=== PATIENT | male | born 1980 | race Caucasian/White ===

== ENCOUNTER → 2024-05-22 11:02 | Outpatient (BNVA) | payer OTHER, SELFPAY | PROVIDERS: PCP Physician Assistant; Visit Provider Physician Assistant | DX: R07.89 Other chest pain (principal); H69.92 Unspecified Eustachian tube disorder, left ear | CPT/HCPCS: 93005 ==

== ENCOUNTER 2024-07-15 08:24 | Outpatient (REF) | payer OTHER, SELFPAY ==
--- NOTE | ~2024-07-15 | XR_ITS ---
EXAMINATION: XR CHEST 2 VIEWS HISTORY: R07.89 - Other chest pain COMPARISON: There are no prior studies for comparison. FINDINGS: PA and lateral views of the chest are submitted. There is mild increased patchy opacity seen posteriorly on the lateral view overlapping the lower spine, suspicious for early pneumonia. The lungs are otherwise clear. There is no pleural effusion, pneumothorax, or pulmonary vascular congestion. The heart is normal in size. The bones are intact. XR/XR chest 2V IMPRESSION: Patchy opacity posteriorly on the lateral view, suspicious for early lower lobe pneumonia. Follow-up is recommended to document resolution. Electronically signed by: Alireza Diana MD 07/15/2024 09:16 AM EDT
[2024-07-15 10:00] LABS: MANUAL DIFF FLAG NO
[2024-07-15 10:12] LABS: Basophils Absolute Auto 0.1 X10*3/uL (0.0-0.2); Basophils Percent Auto 0.7 % (0-2); Eosinophils Absolute Auto 0.1 X10*3/uL (0.0-0.4); Eosinophils Percent Auto 1.3 % (0-4); Hematocrit 48.3 % (42.0-52.0); Hemoglobin 15.6 g/dl (14.0-18.0); Imm Gran Abs Auto 0.02 X10*3/uL (0.00-0.03); Imm Gran Pct Auto 0.3 % (0.0-0.4); Lymphocytes Absolute Auto 1.9 X10*3/uL (1.2-4.9); Mean Corpuscular HGB Conc 32.3 g/dl (31.0-36.0); Mean Corpuscular Hemoglobin 29.3 pg (27.0-33.0); Mean Corpuscular Volume 90.6 fL (80.0-98.0); Mean Platelet Volume 11.3 fL (9.4-12.4); Monocytes Absolute Auto 0.5 X10*3/uL (0.1-1.2); Monocytes Percent Auto 7.1 % (2-11); Neutrophils Absolute Auto 4.4 x10*3/uL (2.0-8.3); Neutrophils Percent Auto 63.6 % (45-73); Platelet Count 268 X10*3/uL (160-400); Red Blood Count 5.33 X10*6/uL (4.60-5.80); Red Cell Distribution Width 13.2 % (11.0-16.0); White Blood Count 6.9 X10*3/uL (4.8-10.8)
[2024-07-15 10:16] LABS: Appearance Urine Clear; Color Urine Yellow; Glucose Urine UA Negative (Negative); Leukocyte Esterase Urine Negative (Negative); Nitrite Urine Negative (Negative); UMIC TRIGGER UACC YES; Urine Blood Trace (Negative); Urine Ketones Negative (Negative); Urine Protein Negative (Neg-Trace)
[2024-07-15 10:22] LABS: Bacteria Urine None Seen (None Seen); Hyaline Casts Urine 0-2 /LPF (0-2); Squamous Epithelial Cell Urine 0-2 /HPF (0-2); WBC Urine 0-5 /HPF (0-5)
[2024-07-15 10:55] LABS: Alanine Aminotransferase 13 U/L (0-40); Albumin Level 4.1 g/dL (3.5-5.0); Alkaline Phosphatase 80 U/L (39-117); Anion Gap 10 (12-20); Aspartate Amino Transferase 19 U/L (5-37); Bilirubin Total 0.3 mg/dL (0.0-1.0); Blood Urea Nitrogen 15 mg/dL (9-16); Calcium 8.8 mg/dL (8.4-10.2); Carbon Dioxide 23 mmol/L (22-29); Chloride 114 mmol/L (96-108); Cholesterol 206 mg/dL (<200); Estimated Glomerular Filt Rate > 60; Glucose Fasting 99 mg/dL (60-99); HDL Cholesterol 41 mg/dL (>40); LDL Cholesterol Calculated 147 mg/dL (<100); Sodium 143 mmol/L (135-145); Triglycerides 92 mg/dL (<150)
[2024-07-15 10:56] LABS: TSH reflex Free T4 0.53 uIU/mL (0.32-4.0)
== END 2024-07-15 08:25 | disposition home or self-care (01) ==
LOC: HO.HMGCX 08:24
PROVIDERS: Visit Provider Physician Assistant
DX: Z13.220 Encounter for screening for lipoid disorders (principal); R07.89 Other chest pain; Z01.89 Encounter for other specified special examinations; Z13.6 Encounter for screening for cardiovascular disorders; Z12.5 Encounter for screening for malignant neoplasm of prostate
CPT/HCPCS: 36415; 71046; 80053; 80061; 81001; 81003; 84153; 84443; 85025

== ENCOUNTER → 2024-07-15 08:42 | Outpatient (BNV) | payer OTHER, SELFPAY | PROVIDERS: Visit Provider Radiology Diagnostic Radiology | DX: R07.89 Other chest pain (principal) | CPT/HCPCS: 71046 ==

== ENCOUNTER 2024-08-13 15:04 | Outpatient (REF) | payer OTHER, SELFPAY ==
--- NOTE | ~2024-08-13 | XR_ITS ---
EXAMINATION: XR CHEST 2 VIEWS HISTORY: J18.9 - Pneumonia, unspecified organism COMPARISON: Comparison is made with the prior examination dated 07/15/2024. FINDINGS: PA and lateral views of the chest are submitted. The lungs are expanded and clear. The previously seen patchy opacity on the lateral view has resolved. There is no pleural effusion, pneumothorax, or pulmonary vascular congestion. The heart is normal in size. The bones are intact. XR/XR chest 2V IMPRESSION: No acute cardiopulmonary abnormality. The previously seen lower lobe pneumonia has resolved. Electronically signed by: Alireza Diana MD 08/14/2024 05:54 PM EDT
== END 2024-08-13 15:05 | disposition home or self-care (01) ==
LOC: HO.HMGCX 15:04
PROVIDERS: PCP Physician Assistant; Visit Provider Physician Assistant
DX: J18.9 Pneumonia, unspecified organism (principal)
CPT/HCPCS: 71046

== ENCOUNTER → 2024-08-13 15:07 | Outpatient (BNV) | payer OTHER, SELFPAY | PROVIDERS: PCP Physician Assistant; Visit Provider Radiology Diagnostic Radiology | DX: J18.9 Pneumonia, unspecified organism (principal) | CPT/HCPCS: 71046 ==

== ENCOUNTER 2024-09-11 16:09 | Outpatient (REF) | payer OTHER, SELFPAY ==
--- NOTE | ~2024-09-11 | CT_ITS ---
CLINICAL HISTORY: R07.89 - Other chest pain CT chest without contrast Comparison: None Findings: The heart size is normal. The visualized thyroid and mediastinum are unremarkable. The lungs are clear. The upper abdomen is unremarkable. No acute fractures. IMPRESSION: 1. Unremarkable chest CT. This document has been electronically signed by: Jesus Rtuherford MD on 09/13/2024 08:45:02
== END 2024-09-11 16:10 | disposition home or self-care (01) ==
LOC: HO.CT 16:09
PROVIDERS: PCP Physician Assistant; Visit Provider Physician Assistant
DX: R07.89 Other chest pain (principal)
CPT/HCPCS: 71250

== ENCOUNTER → 2024-09-11 16:11 | Outpatient (BNV) | payer OTHER, SELFPAY | PROVIDERS: PCP Physician Assistant; Visit Provider Specialist | DX: R07.9 Chest pain, unspecified (principal) | CPT/HCPCS: 71250 ==

== ENCOUNTER 2024-11-27 07:53 | Outpatient (AMB) | payer OTHER, SELFPAY ==
--- OUTSIDE RECORDS SUMMARY | 2024-11-27 07:56 | XMS_ITS | Clinical Summary ---
Author Organization [facility] Address [address] [place] [address] [place] [address] Phone Care Team Providers Care Senior Clinician Name Role Phone Alireza Ashley MD Primary Care Provider +1- [phone] Allergies No known active allergies Medications polymyxin B trimethoprim (POLYTRIM) 10,000 unit- 1 mg/mL Drop Place 1 drop into the right eye twice a day for the next 7 days. 10 mL 01/24/2024 Active Social History Tobacco Use Types Packs/Day Years Used Date Smoking Tobacco: Never Assessed Education Answer Date Recorded Are you interested in more education? Not on sandi e 01/24/2024 Are you concerned about learning? Not on file 01/24/2024 No 01/24/2024 No 01/24/2024 Digital Access Answer Date Recorded No 01/24/2024 No 01/24/2024 Reliable internet access at home? Not on file 01/24/2024 Device with a working camera? Not on file Sex and Gender Information Value Date Recorded Sex Assigned at Not on file Legal Sex Male 11:16 AM EDT Gender Identity Not on file Sexual Orientation Not on file Last Filed Vital Signs Vital Sign Reading Time Taken Comments Blood Pressure 128/70 01/24/2024 12:02 PM EDT Pulse 68 01/24/2024 12:02 PM EDT Temperature 36.8 C (98.2 F) 01/24/2024 12:02 PM EDT Respiratory Rate 18 01/24/2024 12:02 PM EDT Oxygen Saturation 99% 01/24/2024 12:02 PM EDT Inhaled Oxygen Concentration - - Weight - - Height - - Body Mass Index - - Plan of Treatment Health Maintenance Due Date Last Done Comments Adult Td,Tdap Booster 1982 LIPID PANEL 1982 DEPRESSION SCREENING 1994 SMOKING Hx and SMOKELESS TOB ACCO SCREENING 09/23/1995 HEPATITIS C SCREENING 2000 HIV ONE-TIME SCREENING (18-6 5 YEARS) 2000 COVID-19 VACCINE (2023-2 5 season) 2023 HEPATITIS A VACCINES Aged Out No long er eligible based on patient's age to complete this topic HIB VACCINES Aged Out No longer eligi ble based on patient's age to complete this topic MENINGOCOCCAL VACCINES (ACWY) Aged Out No longer eligible based on patient's age to complete this topic MENINGOCOCCAL VACCINES (B) Aged Out N o longer eligible based on patient's age to complete this topic PNEUMOCOCCAL VACCINES (0-49 years) Aged Out No longer eligible based on patient's age to complete this topic Medical Devices Not on file Insurance [employer] FOCUS [facility] [place] [id number] [facility] [employer] Care Teams Senior Clinician Relationship Specialty Start Date End Date Alireza Ashley MD [address] [place] [address] PCP - General Medical Oncology 01/24/24 Additional Source Comments The information contained in this document represents components of the legal health record. It is not the complete legal health record.[facility]
--- NOTE | 2024-11-27 08:02 | MHC.PC.OV ---
Vital Signs 11/27/24 08:08 Height 6 ft Weight 191 lb BMI 25.9 BP 104/62 Blood Pressure Location Rt brachial Position Sitting Pulse 75 Pulse Source Pulse Oximeter Temp 97.5 F Pulse Oximetry (%) 95 Oxygen Delivery Method Room Air Intake Visit Reasons: physical Intake Note: Terence presents in the office today for his annual physical. Allergies No Known Allergies Allergy (Verified 11/27/24 08:06) Medication List - Last Reconciled 11/27/24 by Alma Naik PA-C cetirizine (Zyrtec) 10 mg PO DAILY fluticasone propionate 50 mcg/actuation (Flonase Allergy Relief) 1 spray intranasal BID Tobacco use date assessed: 11/27/24 Dental Screening Dental Screen Date: 11/27/24 Did you have a dental visit in the last 12 months?: Yes Did you have a dental problem in the last 6 months where you did not have access to dental care?: No Was dental information given to patient?: Patient has dentist HPI physical HPI Details Pt is a 44 y/o male who presents today for a physical exam. Uro: He also was noted to have hematuria. Was supposed to get his urine rechecked but has not done so. He has not noticed any urinary symptoms. CV: He states that he is still experiencing complains today of a popping and discomfort at times in his chest. He states that it started about 6 months ago he was stretching when he felt a pop by his sternum. States that there was some immediate pain with it and then it seemed like it got better. States intermittently he will get discomfort in his chest and have to stretch and it will alleviate the symptoms. He states that he will feel a pop when it alleviates the symptoms. He does not have any shortness a breath or dizziness. No cough or wheezing. He did have a negative chest CT. He does not smoke tobacco but does smoke marijuana. His most recent labs did come back showing an elevated cholesterol. He is working on a diet as he has a family history of MIs. His father had an TN around his late 40s or early 50s. Since then he has also had a repeat TN. HEENT: He states that at times his left ear feels a little bit blocked up. He went to a walk-in center in all that long ago and was told that he had Eustachian tube dysfunction. Was told to try Flonase as needed for the congestion. He has been a little congested for the last couple days. Denies any fevers or chills. No ear pain or decreased hearing. No sore throat or cough. He has not used anything yet for his symptoms. Family history: Mother had brain aneurysm at the age of 40, maternal aunt also had an aneurysm unknown age. Father has had 2 MIs [facility] Surgical History (Updated 05/22/24 @ 11:08 by Sandhya South CMA) History of tonsillectomy Family History Father Diabetes Dementia Paternal Grandfather Dementia Social History (Updated 11/27/24 @ 08:07 by Kathy Hess MA) Housing: House Alcohol intake: current Patient Tobacco Use Status: Never used Tobacco e-Cigarette/Vaping Use: Never Used Second Hand Smoke Exposure: Yes Use of substances other than those prescribed or required for medical reasons: Yes Substance Use Type: Marijuana service: No Current occupational status: employed Current occupation: [employer] Current occupational exposures/hazards: No Cognitive needs: No Hearing needs: No Vision needs: No Questionnaire PHQ-9 Over the last 2 weeks, how often have you been bothered by any of the following problems? 1. Little interest or pleasure in doing things: not at all 2. Feeling down, depressed, or hopeless: not at all 3. Trouble falling or staying asleep, or sleeping too much: not at all 4. Feeling tired or having little energy: not at all 5. Poor appetite or overeating: not at all 6. Feeling bad about yourself - or that you are a failure or have let yourself or your family down: not at all 7. Trouble concentrating on things, such as reading the newspaper or watching television: not at all 8. Moving or speaking so slowly that other people could have noticed. Or the opposite - being so fidgety or restless that you have been moving around a lot more than usual: not at all 9. Thoughts that you would be better off or of hurting yourself in some way: not at all Total score: 0 Depression Screening Interpretation: Negative Depression Screening Done: Yes 33887 - PHQ-9 Billing: Yes Source: Developed by Macarena Betancourt.W. Christopher, Jonny Zavaleta and colleagues, with an educational manohar from [employer]. Thrive Questionnaire Date Thrive assessed: 11/27/24 I am a: Patient What is your living situation today?: I have a steady place to live Within the past 12 months, did the food you bought not last and you didn't have the money to get more?: Never true Within the past 12 months, did you worry whether your food would run out before you got money to buy more?: Never true Do you have trouble paying for medicines?: No Do you have trouble getting transportation to medical appointments?: No Do you have trouble paying your heating and electricity bill?: No Do you have trouble taking care of your child, family member or friend?: No Do you have trouble with day-to-day activities such as bathing, preparing meals, shopping, managing finances, etc.?: No Are you currently unemployed and looking for a job?: No Are you interested in more education?: No Please select the resources that you would like help with: None Currently or been in a relationship where the following occur: No concerns reported THRIVE Score: 0 AUDIT C Alcohol Use Questionnaire (AUDIT-C) 1. How often do you have a drink containing alcohol?: Monthly or less (3 times a year) 2. How many drinks containing alcohol do you have on a typical day when you are drinking?: 3 or 4 3. How often do you have six or more drinks on one occasion?: Never Total Score: 2 Score Reviewed/Action Taken: Yes YULI-7 AMB Questionnaire YULI-7 Date YULI - 7 assessed: 11/27/24 Feeling nervous, anxious, or on edge: 0 = Not at all Not being able to stop or control worryin = Not at all Worrying too much about different things: 0 = Not at all Trouble relaxin = Not at all Being so restless that it is hard to sit still: 0 = Not at all Becoming easily annoyed or irritable: 1 = Several days Feeling afraid as if something awful might happen: 0 = Not at all Total YULI-7 score (0-4 normal; 5-9 mild; 10-14 moderate; 15-21 severe): 1 Source: Developed by Drs. Alireza AllisonMacarena Kurt Kroenke and colleagues, with an educational manohar from [employer]. YULI-7 Assessment Billing YULI-7 Assessment Tool: YULI-7 Assessment 97149 Physical exam (Primary Care) Tobacco/Smoking Status: Tobacco use Status Tobacco use date assessed 05/22/24 11/27/24 08:02 Patient Tobacco Use Status Never used Tobacco 11/27/24 08:07 e-Cigarette/Vaping Use Never Used 11/27/24 08:07 Depression Screening Interpretation: Negative Thrive Assessment: Date of Thrive Assessment Date Thrive assessed 05/22/24 11/27/24 08:02 Currently or been in a relationship where the following occur: No concerns reported Const Orientation/consciousness: patient oriented x3 HENMT Ears: hearing grossly normal bilaterally and TM's normal bilaterally General nose exam: No nasal polyps present Face and sinus: Yes sinuses nontender Mouth: Normal oral and palatal mucosa present Eyes Pupils: Equal, round and reactive pupils present EOM: EOMs intact bilaterally Neck Neck: Yes full ROM and Yes no lymphadenopathy Thyroid: Thyroid normal Chest Chest palpation & inspection: normal inspection of the chest Resp Auscultation: clear to auscultation bilaterally Cardio Rate: regular rate Rhythm: regular rhythm Heart sounds: S1 normal heart sound present and S2 normal heart sound present Peripheral pulses: Peripheral pulses 2+ throughout GI Other: Soft, nontender Auscultation: normal bowel sounds Rectal Exam - Male: Yes deferred General: Yes no CVA tenderness Back/Spine/Pelvis Other: Nontender Back: no CVA tenderness Skin General skin exam: no rashes or lesions noted Neuro General: patient oriented x3, gait normal, CN's II-XI intact bilaterally and deep tendon reflexes 2+ bilaterally Cranial nerves: Yes Equal, round and reactive pupils present Motor exam (neuro): 5/5 motor strength present throughout Sensory Exam: double simultaneous stimulation for sensation normal Coordination: pfpiqw-[id number]-mrwt test normal and Romberg test negative Extrem General: Yes normal to inspection and Yes full ROM Psych Affect: normal affect Attitude: cooperative Thought process: Normal thought process present Thought content: Normal thought content present Insight: Good insight present (Psych) Judgement: Good judgement present (Psych) Office Procedures EKG Details: EKG today in office normal sinus rhythm at a rate of 61 beats per minute with nonspecific STT wave abnormalities. No prior study to compare. [id number], Complete Results Reviewed Results Reviewed: Laboratory Tests 07/15/24 08:32 WBC 6.9 RBC 5.33 Hgb 15.6 Hct 48.3 Plt Count 268 Sodium 143 Potassium 4.0 Chloride 114 H Carbon Dioxide 23 Anion Gap 10 L BUN 15 Creatinine 0.86 Estimated GFR > 60 Fasting Glucose 99 Calcium 8.8 Total Bilirubin 0.3 AST 19 ALT 13 Alkaline Phosphatase 80 Total Protein 7.0 Albumin 4.1 Triglycerides 92 Cholesterol 206 H LDL Cholesterol, Calc 147 H HDL Cholesterol 41 PSA Screen 0.60 TSH 0.53 Urine Color Yellow Urine Appearance Clear Urine pH 7.0 Ur Specific [place] 1.020 Urine Protein Negative Urine Glucose (UA) Negative Urine Ketones Negative Urine Blood Trace H Urine Nitrite Negative Ur Leukocyte Esterase Negative Urine RBC 3-5 H Urine WBC 0-5 Ur Squamous Epith Cells 0-2 Urine Bacteria None Seen Hyaline Casts 0-2 cc: Alma Naik~ Report Number: [id number]: Total DLP = 330.00 mGy-cm CLINICAL HISTORY: R07.89 - Other chest pain CT chest without contrast Comparison: None Findings: The heart size is normal. The visualized thyroid and mediastinum are unremarkable. The lungs are clear. The upper abdomen is unremarkable. No acute fractures. IMPRESSION: 1. Unremarkable chest CT. This document has been electronically signed by: Jesus Rutherford MD on 09/13/2024 08:45:02 Coding Level of Care Code Est Pt Prev Care 40-64y(11416) Diagnoses Routine general medical examination at a health care facility Z00.00 Hematuria R31.9 Chest wall pain R07.89 Dyslipidemia E78.5 Family history of TN (myocardial infarction) Z82.49 Family history of brain aneurysm Z82.49 CPT Codes EKG - CPT: 71039-Lohunnrsivzbgryhs, Complete ([id number]) Additional Codes YULI-7 Assessment Billing - YULI-7 Assessment Tool: YULI-7 Assessment 83216 ([id number]) PHQ-9 - 18388 - PHQ-9 Billing: Yes ([id number]) Assessment & Plan Assessment & Plan (1) Routine general medical examination at a health care facility: Code(s): Z00.00 - Encounter for general adult medical examination without abnormal findings Plan: Health maintenance reviewed. Labs reviewed. (2) Hematuria: Code(s): R31.9 - Hematuria, unspecified Category: Medical Plan: recheck today. We will follow up with Urology if the blood is still present. (3) Chest wall pain: Code(s): R07.89 - Other chest pain Category: Medical Plan: Referral to physical therapy. His chest pain appears to be musculoskeletal. EKG today in office is normal sinus rhythm at a rate of 61 beats per minute with nonspecific STT wave abnormalities. No prior study to compare. EKG interpreted myself and Dr. Ragsdale. Stress test ordered (4) Dyslipidemia: Code(s): E78.5 - Hyperlipidemia, unspecified Category: Medical Plan: recheck 6 months (5) Family history of TN (myocardial infarction): Code(s): Z82.49 - Family history of ischemic heart disease and other diseases of the circulatory system Category: Medical Plan: As listed above. Discussed the importance of controlling cholesterol and healthy lifestyle (6) Family history of brain aneurysm: Code(s): Z82.49 - Family history of ischemic heart disease and other diseases of the circulatory system Category: Medical Plan: mra ordered Orders: Orders Lipid Panel Today E78.5 - Hyperlipidemia, unspecified, Z82.49 - Family history of ischemic heart disease and other diseases of the circulatory system MR angio head wo/w con Today Z82.49 - Family history of ischemic heart disease and other diseases of the circulatory system CA stress test Today E78.5 - Hyperlipidemia, unspecified, R07.89 - Other chest pain, Z13.6 - Encounter for screening for cardiovascular disorders, Z82.49 - Family history of ischemic heart disease and other diseases of the circulatory system PT Evaluation and Treatment Today R07.89 - Other chest pain AMB EKG-In Office Today E78.5 - Hyperlipidemia, unspecified, R07.89 - Other chest pain, Z13.6 - Encounter for screening for cardiovascular disorders, Z82.49 - Family history of ischemic heart disease and other diseases of the circulatory system
[2024-11-27 08:08] VITALS: BP 104/62; PULSE 75; TEMP 36.4; O2SAT 95; BMI 25.9
== END 2024-11-27 08:42 | disposition home or self-care (01) ==
LOC: HO.HMCFM 07:53
PROVIDERS: PCP Physician Assistant; Visit Provider Physician Assistant
DX: Z00.00 Encounter for general adult medical examination without abnormal findings (principal); R31.9 Hematuria, unspecified; R07.89 Other chest pain; E78.5 Hyperlipidemia, unspecified; Z82.49 Family history of ischemic heart disease and other diseases of the circulatory system

== ENCOUNTER → 2024-11-27 07:53 | Outpatient (BNVA) | payer OTHER, SELFPAY | PROVIDERS: PCP Physician Assistant; Visit Provider Physician Assistant | DX: Z00.00 Encounter for general adult medical examination without abnormal findings (principal); R31.29 Other microscopic hematuria; R07.89 Other chest pain; E78.5 Hyperlipidemia, unspecified; Z85.49 Personal history of malignant neoplasm of other male genital organs; Z82.49 Family history of ischemic heart disease and other diseases of the circulatory system | CPT/HCPCS: 93005; 96127 ==

== ENCOUNTER 2024-11-27 08:54 | Outpatient (REF) | payer OTHER, SELFPAY ==
[2024-11-27 11:22] LABS: Appearance Urine Clear; Glucose Urine UA Negative (Negative); PH 6.5 (5.0-9.0); Specific Gravity - Urine 1.025 (1.005-1.025); UMIC TRIGGER UACC YES
== END 2024-11-27 08:55 | disposition home or self-care (01) ==
LOC: HO.WFDLDS 08:54
PROVIDERS: Visit Provider Physician Assistant
DX: R07.89 Other chest pain (principal); R31.9 Hematuria, unspecified; E78.5 Hyperlipidemia, unspecified; Z82.49 Family history of ischemic heart disease and other diseases of the circulatory system
CPT/HCPCS: 81001

== ENCOUNTER → 2024-12-31 08:07 | Outpatient (REF) | payer OTHER, SELFPAY ==
--- NOTE | 2024-12-31 08:10 | CA_ITS ---
Acquisition Time: 2024-12-31 08:13:58 Total Exercise Time: 00:11:46 Test Indications: CP Medications: SEE H&P Protocol: MARITZA Max HR: 157 BPM 88% of Pred: 178 BPM Max BP: 140/80 mmHG Max Work Load: 13.4 METS Exercise stress test with exercise 11 mins 46 secs of Maritza Protocol, achieving 88% MPHR, without any reported symptoms of chest pain or SOB, without any arrythmias, with normotenisve response to exercise. Without any EKG changes meeting criteria for ischemia. In recovery, pt continued to feel well. Test reviewed with Dr. Adam. Referred By: Alma Naik Electronically Signed By: Franck Bar
--- OUTSIDE RECORDS SUMMARY | 2024-12-31 09:12 | XMS_ITS | Clinical Summary ---
Author Organization [facility] Address [address] [place] [address] [place] [address] Phone Care Team Providers Care Scrap Picker Name Role Phone Alireza Ashley MD Primary Care Provider +1- [phone] Allergies No known active allergies Medications polymyxin [...] HIV ONE-TIME SCREENING (18-6 5 YEARS) 2000 INFLUENZA VACCINE (#1) 2024 COVID-19 VACCINE (2023-2 5 season) 2024 HEPATITIS A VACCINES Aged Out No long [...] topic Medical Devices Not on file Insurance [employer] FOCUS [employer] FOCUS FOCUS [employer]OCUS [employer] Care Teams Scrap Picker Relationship Specialty Start Date End Date Alierza Ashley MD [address] [place], [place] [id number] PCP - General Medical Oncology 01/24/24 Additional Source Comments The information contained in this document represents components of the legal health record. It is not the complete legal health record.[facility]
== END ==
LOC: HO.CARD 08:07
PROVIDERS: PCP Physician Assistant; Visit Provider Physician Assistant
DX: Z13.6 Encounter for screening for cardiovascular disorders (principal); Z82.49 Family history of ischemic heart disease and other diseases of the circulatory system; E78.5 Hyperlipidemia, unspecified; R07.89 Other chest pain
CPT/HCPCS: 93017

== ENCOUNTER → 2024-12-31 08:10 | Outpatient (BNV) | payer OTHER, SELFPAY | PROVIDERS: PCP Physician Assistant | DX: R07.9 Chest pain, unspecified (principal) | CPT/HCPCS: 93016; 93018 ==

== ENCOUNTER 2025-01-07 18:31 | Outpatient (REF) | payer OTHER, SELFPAY ==
--- NOTE | ~2025-01-07 | MR_ITS ---
EXAMINATION: MR ANGIOGRAPHY BRAIN WITHOUT CONTRAST CLINICAL INFORMATION: Z82.49. Family history of ischemic heart disease and other diseases. COMPARISON: None available. TECHNIQUE: 3-D [id number] [place]. Maximum intensity projections [place]. FINDINGS: Anterior cerebral circulation: ICAs: No flow signal gap or abrupt cut off. MCA's: No flow signal gap or abrupt cut off. Bifurcation/trifurcation demonstrated no gross signal abnormality. ACAs: No flow signal gap or abrupt cut off. Ophthalmic arteries flow signal is present. Anterior communicating artery flow signal is present. I do not see the flow signal in the posterior communicating arteries. Posterior cerebral circulation: V3/V4 segments: No flow signal gap or intimal flap. Left vertebral artery slightly dominant. Posterior inferior cerebral arteries flow signal is present. Basilar artery flow signal is present without intimal flap or focal narrowing. Superior cerebellar arteries flow signal is present. email administrator: No flow signal gap or abrupt cut off. Ancillary findings: Superior sagittal venous sinus, internal cerebral veins, vein of Isaias, straight sinus, torcula, transverse and sigmoid venous sinuses are present without gross intraluminal filling defect. Polypoid mucosal thickening occupying the entire left maxillary sinus. MR/MR angio head wo con IMPRESSION: Normal MRA [place]. Polypoid left maxillary sinus disease. Recommend direct inspection. Electronically signed by: Kendall Montes MD 01/08/2025 07:12 AM EDT
--- OUTSIDE RECORDS SUMMARY | 2025-01-07 18:56 | XMS_ITS | Clinical Summary ---
Author Organization [facility] Address [address] [place] [address] [place] [address] Phone Care Team Providers Care Project Construction Assistant Manager Name Role Phone Alireza Ashley MD Primary Care Provider +1- [phone] Allergies No known active allergies Medications polymyxin [...] topic Medical Devices Not on file Insurance [employer] FOCUS [employer]US FOCUS FOCUS [employer] FOC[employer] Care Teams Project Construction Assistant Manager Relationship Specialty Start Date End Date Alireza Ashley MD [address] [place], [place] [phone] PCP - General Medical Oncology 01/24/24 Additional Source Comments The information contained in this document represents components of the legal health record. It is not the complete legal health record.[facility]
== END 2025-01-07 18:32 | disposition home or self-care (01) ==
LOC: HO.MRI 18:31
PROVIDERS: PCP Physician Assistant; Visit Provider Physician Assistant
DX: J32.0 Chronic maxillary sinusitis (principal); Z82.49 Family history of ischemic heart disease and other diseases of the circulatory system
CPT/HCPCS: 70544

== ENCOUNTER → 2025-01-07 18:36 | Outpatient (BNV) | payer OTHER, SELFPAY | PROVIDERS: PCP Physician Assistant; Visit Provider Radiology Diagnostic Radiology | DX: J33.8 Other polyp of sinus (principal) | CPT/HCPCS: 70544 ==

== ENCOUNTER 2025-01-29 08:27 | Outpatient (REF) | payer OTHER, SELFPAY ==
--- NOTE | ~2025-01-29 | US_ITS ---
CLINICAL HISTORY: R31.9 - Hematuria, unspecified US Renal Comparison: None provided Findings: Right kidney normal size and echotexture, 11.8 cm length. Left kidney normal size and echotexture, 11.1 cm length. One to a few subcentimeter simple right renal cyst/s. No hydronephrosis of either kidney. Normal color Doppler IMPRESSION: No hydronephrosis. This document has been electronically signed by: Hannah Luong MD on 01/30/2025 12:33:24
--- OUTSIDE RECORDS SUMMARY | 2025-01-29 08:51 | XMS_ITS | Clinical Summary ---
Author Organization [facility] Address [address] [place] [address] [place] [phone] Phone Care Team Providers Care Typewriter Assembly And Parts Inspector Name Role Phone Alireza Ashley MD Primary Care Provider +1- [phone] Allergies No known active allergies Medications polymyxin [...] 2000 INFLUENZA VACCINE (#1) 2024 COVID-19 VACCINE ( - 2024-2 6 season) 2024 HEPATITIS A VACCINES Aged Out [...] topic Medical Devices Not on file Insurance [employer] F[employer]US [employer] FOCUS FOCUS [employer] Care Teams Typewriter Assembly And Parts Inspector Relationship Specialty Start Date End Date Alireza Ashley MD [address] [place] [address] [place] [address] PCP - General Medical Oncology 01/24/24 Additional Source Comments The information contained in this document represents components of the legal health record. It is not the complete legal health record.[facility]
== END 2025-01-29 08:28 | disposition home or self-care (01) ==
LOC: HO.US 08:27
PROVIDERS: PCP Physician Assistant; Visit Provider Physician Assistant
DX: R31.9 Hematuria, unspecified (principal); R80.9 Proteinuria, unspecified
CPT/HCPCS: 76775

== ENCOUNTER → 2025-01-29 08:28 | Outpatient (BNV) | payer OTHER, SELFPAY | PROVIDERS: PCP Physician Assistant; Visit Provider Radiology Diagnostic Radiology | DX: R31.9 Hematuria, unspecified (principal) | CPT/HCPCS: 76775 ==

== ENCOUNTER 2025-02-13 08:29 | Outpatient (AMB) | payer OTHER, SELFPAY ==
--- NOTE | 2025-02-13 08:29 | MHC.OFFVIS ---
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 He is a patient of Dr. Naik. He seen for the following urologic conditions - nephrolithiasis - microscopic hematuria Episode of microscopic hematuria Prior history nephrolithiasis Imaging negative Follow-up in 12 months with repeat imaging [facility] Surgical History (Updated 05/22/24 @ 11:08 by Sandhya South CMA) History of tonsillectomy Family History Father Diabetes Dementia Paternal Grandfather Dementia Social History (Updated 11/27/24 @ 08:07 by Kathy Hess MA) Housing: House Alcohol intake: current Patient Tobacco Use Status: Never used Tobacco e-Cigarette/Vaping Use: Never Used Second Hand Smoke Exposure: Yes Substance Use Type: Marijuana service: No Current occupational status: employed 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, 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 Current occupational exposures/hazards: No Cognitive needs: No Hearing needs: No Vision needs: No Review of Systems Const Denies chills and Denies fever(s) Card Reports no additional complaints and Denies syncope Resp Denies cough GI Denies abdominal pain and Denies heartburn Reports as per HPI and Denies change in libido Neuro Denies syncope Psych Denies change in libido Endo Denies change in libido Physical Exam Const General: cooperative, healthy appearing, comfortable and no acute distress Orientation/consciousness: patient oriented x3 HEENT Face and sinus: Yes normal facial exam Mouth: moist mucous membranes Neck Neck: Yes normal visual inspection, Yes full ROM and Yes trachea midline Chest Chest palpation & inspection: normal inspection of the chest Resp Effort & Inspection: normal respiratory effort, able to speak in complete sentences and no respiratory distress GI Inspection: Yes normal to inspection Back/Spine/Pelvis Cervical Spine: normal cervical lordosis Thoracic/Lumbar Spine: thoracic and lumbar spine normal to inspection Skin General skin exam: no rashes or lesions noted Neuro General: patient oriented x3, gait normal, tone normal and moves all extremities Extrem General: Yes normal to inspection and Yes capillary refill normal Results AMB Urinalysis, Automated UA Leukoctes 0 Alissa/uL Last Edit by Jacqui Colon, CCMA on 02/13/25 10:15 UA Nitrite Negative Last Edit by Jacqui Colon, CCMA on 02/13/25 10:15 UA Urobilinogen 0.2 mg/dL Last Edit by Jacqui Colon, CCMA on 02/13/25 10:15 UA Protein 0 mg/dL Last Edit by Jacqui Colon, [facility] on 02/13/25 10:15 UA pH 6.0 Last Edit by Jacqui Colon, CCMA on 02/13/25 10:15 UA Blood 10 John/uL Last Edit by Jacqui Colon, [facility] on 02/13/25 10:15 UA Specific [place] 1.020 Last Edit by Jacqui Colon, [facility] on 02/13/25 10:15 UA Ketone Negative Last Edit by Jacqui Colon, [facility] on 02/13/25 10:15 UA Bilirubin 0 mg/dL Last Edit by Jacqui Colon, [facility] on 02/13/25 10:15 UA Glucose 0 mg/dL Last Edit by Jacqui Colon, [facility] on 02/13/25 10:15 Results Reviewed Results Reviewed: Laboratory Last Values Urine pH (Auto) 6.0 02/13/25 10:14 Specific [place] (Auto) 1.020 02/13/25 10:14 Urine Protein (Auto) 0 mg/dL 02/13/25 10:14 Glucose (UA)(Auto) 0 mg/dL 02/13/25 10:14 Urine Ketones (Auto) Negative 02/13/25 10:14 Urine Blood (Auto) 10 John/uL 02/13/25 10:14 Urine Nitrite (Auto) Negative 02/13/25 10:14 Urine Bilirubin (Auto) 0 mg/dL 02/13/25 10:14 Urine Urobilinogen (Auto) 0.2 mg/dL 02/13/25 10:14 Leukocyte Esterase (Auto) 0 Alissa/uL 02/13/25 10:14 Assessment & Plan Assessment & Plan (1) Nephrolithiasis: Code(s): N20.0 - Calculus of kidney Category: Medical Plan Twelve month follow-up imaging Urine cytology Orders: Orders US renal BI 12 Months N20.0 - Calculus of kidney Urine Cytology 02/13/25 R31.9 - Hematuria, unspecified Patient Instructions: This note is constructed using voice recognition software. While every effort has been made to ensure accuracy pull worker errors may have been included. Imaging studies, laboratory and physical exam results were discussed and reviewed in detail. No major barriers to patient understanding were identified. An opportunity to ask questions regarding the treatment plan was provided. All questions were answered. The patient expressed understanding and agreement with the above treatment plan. The patient is aware they should contact our office by phone for worsening of their current condition or the appearance of new urologic symptoms. Compliance is encouraged with any medications and followup testing that is ordered. It is a privilege to participate in the urologic care of your patient. If you have any questions or concerns regarding treatment for the above conditions, or other urologic issues, please do not hesitate to contact me. The office telephone contact is [phone]. Sincerely, Dr Chetan Cheema MD, [facility] - Urology Compassionate Specialist Care for the Genitourinary System Coding Level of Care Code New Pt Level 3 (10758) Diagnoses Nephrolithiasis N20.0
--- OUTSIDE RECORDS SUMMARY | 2025-02-13 09:09 | XMS_ITS | Clinical Summary ---
Author Organization [facility] Address [address] [place] [address] [place] [id number] Phone Care Team Providers Care Interior Design Instructor Name Role Phone Alireza Ashley MD Primary Care Provider [phone]- [phone] Allergies No known active allergies Medications polymyxin [...] topic Medical Devices Not on file Insurance [employer] [facility] Address: [facility] [address] [place] [address] [facility] Address: [facility] [id number] [place] [address] [facility] Address: [address] [place] [address] [employer] Care Teams Interior Design Instructor Relationship Specialty Start Date End Date Alireza Ashley MD [address] [place] [address] [place] [id number] PCP - General Medical Oncology 01/24/24 Additional Source Comments The information contained in this document represents components of the legal health record. It is not the complete legal health record.[facility]
== END 2025-02-13 09:02 | disposition home or self-care (01) ==
LOC: HO.HUSH 08:29
PROVIDERS: PCP Physician Assistant; Visit Provider Urology
DX: N20.0 Calculus of kidney (principal)
CPT/HCPCS: 99203

== ENCOUNTER 2025-02-13 08:29 | Outpatient (REF) | payer OTHER, SELFPAY | END 2025-02-13 08:30 | disposition home or self-care (01) | LOC: HO.LAB 08:29 | PROVIDERS: PCP Physician Assistant; Visit Provider Urology | DX: N20.0 Calculus of kidney (principal); R31.9 Hematuria, unspecified | CPT/HCPCS: 88112 ==